=== PATIENT | female | born 1980 | race American Indian/Alaskan Native ===

== ENCOUNTER 2016-03-26 16:53 | Emergency (ER) | payer MEDICAID ==
[2016-03-26] MEDS ORDERED: TYLENOL PO ONE (23:32)
--- NOTE | 2016-03-26 23:36 | Emergency Department Report ---
ED Lower Extremity HPI - General Chief Complaint: Extremity Injury, Lower Stated Complaint: POSS RT BROKEN FOOT Time Seen by Provider: 03/26/16 22:36 Source: patient Mode of arrival: Ambulatory Limitations: No Limitations - History of Present Illness Initial Comments: 35-year-old female past medical history hypertension ESRD on dialysis presents complaining of 2 days of right foot pain. Patient states she was walking down steps at home and accidentally drove foot into side of [place]. Patient complaining of pain in her second and third toes. Patient ambulatory with limp and foot due to pain right foot. Denies any lacerations no other injury sustained patient denies any falls. She had been icing her foot for the last 2 days but the pain was really bothering her which is why she came to the ED. MD Complaint: foot injury Onset/Timin -: days(s) Injury: Foot: Right, Toes: Right Type of Injury: blunt Place: home Severity: moderate Severity scale (0 -10): 6 Improves With: cold therapy Worsens With: weight bearing Context: direct blow Associated Symptoms: swelling, able to partially bear weight Treatments Prior to Arrival: cold therapy, NSAIDS - Related Data Previous Rx's Medication Instructions Recorded Last Taken Type HYDROcodone/APAP 5-325 [Leadore 1 each PO Q6HR PRN #8 tablet 02/08/16 Unknown Rx 5/325] Ondansetron [Zofran Odt] 4 mg PO Q8H PRN #8 tab.rapdis 02/08/16 Unknown Rx HYDROcodone/APAP 5-325 [Lead[place] 1 each PO Q6HR PRN #9 tablet 03/26/16 Unknown Rx 5/325] Allergies Allergy/AdvReac Type Severity Reaction Status Date / Time lisinopril Allergy Angioedema Verified 03/26/16 17:34 metoclopramide HCl Allergy Seizure Verified 03/26/16 17:34 [From Reglan] sulfamethoxazole Allergy Unknown Verified 03/26/16 17:34 [From Septra] trimethoprim [From Septra] Allergy Unknown Verified 03/26/16 17:34 ED Review of Systems ROS: Stated complaint: POSS RT BROKEN FOOT Other details as noted in HPI Constitutional: denies: chills, fever Eyes: denies: eye pain, eye discharge, vision change ENT: denies: ear pain, throat pain Respiratory: denies: cough, shortness of breath, wheezing Cardiovascular: denies: chest pain, palpitations Endocrine: no symptoms reported Gastrointestinal: denies: abdominal pain, nausea, diarrhea Genitourinary: denies: urgency, dysuria, discharge Musculoskeletal: as per HPI. 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 - Surgical History Past Surgical History?: No Additional Surgical History: graft to R arm - Social History Smoking Status: Unknown if ever smoked Substance Use Type: Non Opiate Pain, Prescribed - Medications Home Medications: Home Medications Medication Instructions Recorded Confirmed Last Taken Type HYDROcodone/APAP 5-325 [[place] 1 each PO Q6HR PRN #8 tablet 02/08/16 Unknown Rx 5/325] Ondansetron [Zofran Odt] 4 mg PO Q8H PRN #8 tab.rapdis 02/08/16 Unknown Rx HYDROcodone/APAP 5-325 [Lead[place] 1 each PO Q6HR PRN #9 tablet 03/26/16 Unknown Rx 5/325] ED Physical Exam - General Limitations: No Limitations General appearance: alert, in no apparent distress - Head Head exam: Present: atraumatic, normocephalic - Eye Eye exam: Present: normal appearance - ENT ENT exam: Present: mucous membranes moist - Neck Neck exam: Present: normal inspection - Respiratory Respiratory exam: Present: normal lung sounds bilaterally. Absent: respiratory distress - Cardiovascular Cardiovascular Exam: Present: regular rate, normal rhythm. Absent: systolic murmur, diastolic murmur, rubs, gallop - GI/Abdominal GI/Abdominal exam: Present: soft, normal bowel sounds - Extremities Exam Extremities exam: Present: normal inspection - Expanded Lower Extremity Exam Right Hip exam: Present: normal inspection, full ROM Upper Leg exam: Present: normal inspection, full ROM Knee exam: Present: normal inspection, full ROM Lower Leg exam: Present: normal inspection, full ROM Ankle exam: Present: normal inspection, full ROM Foot/Toe exam: Present: normal inspection, tenderness (amount of swelling and distal right second and third toe region, distal sensation and pulses intact dorsalis pedis and posterior tibial pulses intact) Neuro vascular tendon exam: Present: no vascular compromise Gait: Positive: observed and limited by pain 1 - Minor amount of pain - Back Exam Back exam: Present: normal inspection - Neurological Exam Neurological exam: Present: alert, oriented X3, CN II-XII intact, normal gait - Psychiatric Psychiatric exam: Present: normal affect, normal mood - Skin Skin exam: Present: warm, dry, intact, normal color. Absent: rash ED Course Vital Signs 03/26/16 17:30 Temperature 99.4 F Pulse Rate 100 H Respiratory 18 Rate Blood Pressure 132/85 O2 Sat by Pulse 100 Oximetry ED Lower Extremity MDM - Medical Decision Making A/P: Right foot pain, toe sprain 1-I reviewed x-ray with Dr. Alexis, there are no visible toe or metatarsal fractures as per Dr. Alexis on visualization a foot x-ray 2-mariano taping the toes, Mick wrap to right foot, orthopedic shoe, patient able to walk with minimal to no difficulty, I offered crutches for support and nonweightbearing. I offered patient crutches but she stated that with the orthopedic shoe she had minimal to no pain and did not want to use the crutches. Patient visibly ambulating with minimal to no difficulty. It is reasonable the patient does not need crutches at this time as there is no definitive fracture and she feels comfortable bearing weight on the foot with orthopedic shoe without any significant pain. 3-short course Leadore for pain 4-follow-up with podiatry. I reinforced the importance of follow-up with podiatry to the patient Critical care attestation.: If time is entered above; I have spent that time in minutes in the direct care of this critically ill patient, excluding procedure time. ED Disposition Clinical Impression: Sprain of foot, right Qualifiers: Encounter type: initial encounter Qualified Code(s): S93.601A - Unspecified sprain of right foot, initial encounter Disposition: DISCHARGED TO HOME OR SELFCARE Is pt being admited?: No Does the pt Need Aspirin: No Condition: Stable Instructions: Foot Contusion (ED), RICE Therapy (ED) Additional Instructions: I advised patient to call for podiatry follow-up Prescriptions: HYDROcodone/APAP 5-325 [Leadore 5/325] 1 each PO Q6HR PRN #9 tablet PRN Reason: Pain Referrals: PRIMARY CARE, [Primary Care Provider] - 3-5 Days JESSICA BARRETT DPM [Staff Physician] - 3-5 Days Time of Disposition: 23:37
[2016-03-27 00:14] VITALS: BP 128/80
--- NOTE | 2016-03-27 08:01 | XRay Report ---
RIGHT FOOT, 3 views: History: Right foot pain after injury. The bony architecture is intact. Bony alignment is normal. No soft tissue abnormalities are seen. The joint spaces appear preserved. IMPRESSION: Normal right foot.
== END 2016-03-27 00:18 | disposition home or self-care (01) ==
LOC: ED 16:53
DX: S93.601A Unspecified sprain of right foot, initial encounter (principal); I12.0 Hypertensive chronic kidney disease with stage 5 chronic kidney disease or end stage renal disease; N18.6 End stage renal disease; Z99.2 Dependence on renal dialysis; I50.9 Heart failure, unspecified; E11.9 Type 2 diabetes mellitus without complications; Z88.2 Allergy status to sulfonamides; Z88.8 Allergy status to other drugs, medicaments and biological substances; X58.XXXA Exposure to other specified factors, initial encounter; Y93.89 Activity, other specified; Y99.8 Other external cause status; Y92.098 Other place in other non-institutional residence as the place of occurrence of the external cause
CPT/HCPCS: 99284